=== PATIENT | male | born 1970 | race African-American/Black ===

== ENCOUNTER 2019-09-12 20:22 | Inpatient (IN) | payer MEDICAID ==
[~2019-09-12] VITALS: Ht 175.3 cm; Wt 115.0 kg
[~2019-09-12 20:22] MED LIST: TRAMADOL; TRAZ-175 PO
--- NOTE | 2019-09-12 20:57 | NUR ---
FIRST CONTACT: PT LAYING BACK ON GURLYNETTE, APPEARS COMFORTABLE. STATES "I CAME IN BECAUSE OF MY ABCESS" REPORTS GARGLING PEROXIDE RINSE AND TAKING IBUPROFEN PURCHASING INTERNSHIP. PT HAS NOTABLE RIGHT LOWER CHEEK ABOVE JAW LINE SWELLING. PT STATES "I HAVE AN ABCESS." SWOLLEN AREA SLIGHTLY FIRM, SWELLING PROGRESSES OVER RIGHT SIDE OF LOWER LIP. PT REPORTS 10/10. PT DENIES ANY DIFFICULTY SWALLOWING, REPORTS NUMBNESS ON THE RIGHT SIDE. DENIES TINGLING, SKIN IN AREA WARM ADN DRY ADN COLOR WNL. DENIES ANY SOB. GROSS NEURO INTACT, DENIES VISION CHANGES, PERRLA INTACT. PT PLACED ON BP, SPO2 MONITORING DELL CAMPOS AT BS FOR EVAL AND POC.
[2019-09-12 21:15] LABS: BASOPHILS # (AUTO) 0.03 x10^3/uL (0-0.1); BASOPHILS % (AUTO) 0 % (0-1); EOSINOPHILS # (AUTO) 0.05 x10^3/uL (0-0.4); EOSINOPHILS % (AUTO) 0 % (1-7); LYMPHOCYTES # (AUTO) 2.47 x10^3/uL (1-3.4); LYMPHOCYTES % (AUTO) 18 % (22-44); MD NO; MEAN CORPUSCULAR HEMOGLOBIN 29.5 pg (27.5-34.5); MEAN CORPUSCULAR HGB CONC 32.6 g/dL (33.2-36.2); MEAN CORPUSCULAR VOLUME 90.5 fL (81-97); MEAN PLATELET VOLUME 7.5 fL (7.4-10.4); MONOCYTES # (AUTO) 1.06 x10^3/uL (0.2-0.8); MONOCYTES % (AUTO) 8 % (2-9); NEUTROPHILS # (AUTO) 10.44 x10^3/uL (1.8-6.8); NEUTROPHILS % (AUTO) 74 % (42-75); PLATELET COUNT 313 x10^3/uL (130-400); RED BLOOD COUNT 4.93 x10^6/uL (4.38-5.82); RED CELL DISTRIBUTION WIDTH 14.6 % (9.4-14.8)
[2019-09-12 21:24] LABS: ALBUMIN 3.7 g/dL (3.4-5.0); ANION GAP 7 mmol/L (5-15); CALCIUM 10.1 mg/dL (8.5-10.1); CHLORIDE 108 mmol/L (98-107); CREATININE 0.83 mg/dL (0.7-1.3)
[2019-09-12] MEDS ORDERED: ONDANSETRON 2MG/ML, 2ML IVPush ONE (21:30)
[2019-09-12] MEDS ORDERED: SODIUM CHLORIDE FLUSH 10ML SYR IVF ONE (21:30)
[2019-09-12 21:32] LABS: ALANINE AMINOTRANSFERASE 58 U/L (12-78)
[2019-09-12 21:33] LABS: ALKALINE PHOSPHATASE 138 U/L (45-117); BILIRUBIN,TOTAL 0.8 mg/dL (0.2-1.0); TOTAL PROTEIN 7.7 g/dL (6.4-8.2)
[2019-09-12] MEDS ORDERED: HYDROmorphone 2 MG/ML, 1ML ONE (21:38)
[2019-09-12] MEDS ORDERED: ONDANSETRON 2MG/ML, 2ML ONE (21:38)
[2019-09-12] MEDS: HYDROmorphone 2 MG/ML, 1ML IVPush PRN ×2 (21:43→23:04)
--- NOTE | 2019-09-12 21:48 | NUR ---
PT MEDICATED PER MAY, PT TO CT VIA GURLYNETTE, NO CHANGE IN PT CONDITION AT THIS TIME. PT PLACED ON 2L NC AFTER MEDICATING PT. WCTM.
--- NOTE | 2019-09-12 22:40 | NUR ---
PT RESTING IN GURNEY, REPORTS PAIN IS DECREASED. DENIES ADDITIONAL NEEDS AT THIS TIME. NO OTHER CHANGES IN CONDITION, WCTM. WAITING FOR ADDITIONAL LAB RESULTS.
[2019-09-12] MEDS ORDERED: OMNIPAQUE 350 MG/ML, 100ML BOTTLE ONE (22:42)
--- NOTE | 2019-09-12 22:58 | NUR ---
PT REPORTS INCREASING ORAL PAIN, 10/11. PT MEDICATED PER MAY. NO OTHER CHANGE IN CONDITION, WCTM.
[2019-09-12] MEDS ORDERED: HYDROmorphone 1 MG/ML, 1ML INJ ONE (23:00)
[2019-09-13] MEDS ORDERED: CLINDAMYCIN PMX 300MG/50ML 50 ML IV SCH
[2019-09-13] MEDS ORDERED: HYDROmorphone 2 MG/ML, 1ML IVPush PRN
[2019-09-13] MEDS ORDERED: CLINDAMYCIN PMX 600MG/50ML 50 ML IV ONE
[2019-09-13] MEDS ORDERED: ONDANSETRON 2MG/ML, 2ML IVPush ONE
[2019-09-13] MEDS ORDERED: AMPICILLIN/SULBACTAM 3 GM in SODIUM CHLORIDE 0.9% 100 ML IV ONE
--- NOTE | 2019-09-13 00:02 | NUR ---
PT RESTING IN [facility], MEDICATED PER MAY. NAD, NO CHANGE IN CONDITION. VSS, GIVEN ICE PACK AND ORAL SWABS FOR COMFORT. PT STATES FACE IS "GETTING PRETTY HOT." WCTM. WAITING ON CONSULT.
[2019-09-13] MEDS ORDERED: HYDROmorphone 1 MG/ML, 1ML INJ ONE (00:12)
[2019-09-13] MEDS: SODIUM CHLORIDE 0.9% 1,000 ML IV SCH ×2 (00:13→22:21)
[2019-09-13] MEDS: AMPICILLIN/SULBACTAM 3 GM in SODIUM CHLORIDE 0.9% 100 ML IV SCH ×3 (00:19→16:25)
[2019-09-13] MEDS ORDERED: hydrALAzine 20 MG/ML, 1ML IVPush PRN (00:30)
[2019-09-13] MEDS ORDERED: BISACODYL 10 MG SUPP PR PRN (00:30)
[2019-09-13] MEDS: TRAZODONE 100MG TABLET PO SCH ×2 (00:30→22:21)
[2019-09-13] MEDS ORDERED: POLYETHYLENE GLYCOL 17 GM PACKET PO PRN (00:30)
--- NOTE | 2019-09-13 01:15 | NUR ---
LATE ENTRY: PT RESTING IN [facility], SWAB SAMPLE COLLECTED AND WALKED TO LAB. PT NAD, RESP WNL, NO CHANGE IN CONDITION WCTM. WAITING ON ADMIT BED.
--- NOTE | 2019-09-13 01:45 | NUR ---
PT AMBULATED TO AND FROM RESTROOM WITH A SMOOTH AND STEADY GAIT, PT GIVEN FRESH ICE PACK AND SOCKS FOR COMFORT, DENIES ADDITIONAL NEEDS AT THIS TIME. PT TRANSFERRED TO HOSPITAL BED. NAD, VSS, NO CHANGE IN PT CONDITION, WCTM.
--- NOTE | 2019-09-13 02:15 | NUR ---
REPORT CALLED TO [facility]. PT CARE TO BE TRASNFERRED ONCE TAKEN TO THE FLOOR. PT CONDITION UNCHANGED.
[2019-09-13 02:30] VITALS: BP 114/75
[2019-09-13] MEDS: HYDROmorphone 2 MG/ML, 1ML IVPush PRN ×3 (02:54→06:37)
[2019-09-13 03:21] VITALS: BP 114/75
[2019-09-13] MEDS: ONDANSETRON 2MG/ML, 2ML IVPush PRN (03:38)
[2019-09-13] MEDS: OXYcodone IR 5MG TABLET PO PRN ×2 (04:54→22:49)
[2019-09-13 08:37] VITALS: BP 124/82
[2019-09-13] MEDS: SENNA/DOCUSATE TABLET PO SCH (08:41)
[2019-09-13] MEDS ORDERED: MIDAZOLAM 1 MG/ML, 2ML ONE (08:42)
[2019-09-13] MEDS ORDERED: FENTANYL PF 100 MCG/2ML ONE ×2 (08:42→12:11)
[2019-09-13] MEDS ORDERED: ONDANSETRON 2MG/ML, 2ML ONE (08:45)
[2019-09-13] MEDS ORDERED: PROPOFOL 10 MG/ML, 20ML ONE (08:45)
[2019-09-13] MEDS ORDERED: DEXAMETHASONE 4 MG/ML, 1ML ONE ×2 (08:45)
[2019-09-13] MEDS ORDERED: SUCCINYLCHOLINE 20 MG/ML, 10ML ONE (08:45)
[2019-09-13] MEDS ORDERED: ROCURONIUM 10MG/ML,5ML ONE (08:45)
[2019-09-13] MEDS ORDERED: LIDOCAINE 1%-EPI 1:100K, 20ML ONE (09:15)
[2019-09-13] MEDS ORDERED: MEPERIDINE/PF 25MG/0.5ML IVPush PRN (10:30)
[2019-09-13] MEDS ORDERED: PROMETHAZINE 25 MG/ML, 1ML IVPush PRN (10:30)
[2019-09-13] MEDS ORDERED: ONDANSETRON 2MG/ML, 2ML IVPush PRN (10:30)
[2019-09-13] MEDS ORDERED: ACETAMINOPHEN 325 MG TABLET PO PRN (10:30)
[2019-09-13] MEDS ORDERED: HYDROmorphone 1 MG/ML, 1ML INJ IVPush PRN (10:30)
[2019-09-13] MEDS ORDERED: OXYcodone 5 MG/5 ML ORAL.SOL UDC PO PRN (10:30)
[2019-09-13] MEDS ORDERED: hydrALAzine 20 MG/ML, 1ML IV PRN (10:30)
[2019-09-13] MEDS ORDERED: LABETALOL 5MG/ML, 20ML IV PRN (10:30)
[2019-09-13] MEDS ORDERED: DIAZEPAM 5 MG/ML, 2ML IVPush PRN (10:30)
[2019-09-13] MEDS ORDERED: LIDOCAINE 1%-EPI 1:100K, 20ML INFIL ONE (11:03)
[2019-09-13] MEDS ORDERED: OXYcodone 5 MG/5 ML ORAL.SOL UDC ONE (12:12)
[2019-09-13] MEDS: FENTANYL PF 100 MCG/2ML IV PRN ×2 (12:18→12:23)
[2019-09-13 17:22] LABS: HCT (SEDRATE) 43.6 % (39.2-51.8)
[2019-09-13 18:39] VITALS: BP 120/65
[2019-09-13] MEDS ORDERED: ALUMINUM/MAG/SIMETHICONE 30 ML UDC PO PRN (22:30)
[2019-09-13 23:44] VITALS: BP 128/65
[2019-09-14] MEDS: ONDANSETRON 2MG/ML, 2ML IVPush PRN (00:36)
[2019-09-14] MEDS: AMPICILLIN/SULBACTAM 3 GM in SODIUM CHLORIDE 0.9% 100 ML IV SCH ×3 (00:36→17:10)
[2019-09-14] MEDS: OXYcodone IR 5MG TABLET PO PRN ×4 (00:49→20:47)
[2019-09-14 03:27] VITALS: BP 126/77
[2019-09-14 04:40] LABS: ANION GAP 7 mmol/L (5-15); CALCIUM 9.7 mg/dL (8.5-10.1); CHLORIDE 106 mmol/L (98-107); MEAN CORPUSCULAR HEMOGLOBIN 29.6 pg (27.5-34.5); MEAN CORPUSCULAR HGB CONC 31.9 g/dL (33.2-36.2); MEAN CORPUSCULAR VOLUME 92.7 fL (81-97); MEAN PLATELET VOLUME 7.9 fL (7.4-10.4); PLATELET COUNT 271 x10^3/uL (130-400); RED BLOOD COUNT 4.43 x10^6/uL (4.38-5.82); RED CELL DISTRIBUTION WIDTH 14.5 % (9.4-14.8)
[2019-09-14 04:49] LABS: CREATININE 0.87 mg/dL (0.7-1.3)
[2019-09-14 04:56] LABS: BASOPHILS % (AUTO) 0 % (0-1); EOSINOPHILS % (AUTO) 0 % (1-7); LYMPHOCYTES # (AUTO) 1.72 x10^3/uL (1-3.4); LYMPHOCYTES % (AUTO) 9 % (22-44); MD SCAN; MONOCYTES # (AUTO) 1.37 x10^3/uL (0.2-0.8); MONOCYTES % (AUTO) 7 % (2-9); NEUTROPHILS # (AUTO) 15.61 x10^3/uL (1.8-6.8); NEUTROPHILS % (AUTO) 84 % (42-75)
[2019-09-14] MEDS: ACETAMINOPHEN 325 MG TABLET PO PRN ×2 (06:28→20:47)
[2019-09-14 07:07] VITALS: BP 112/75
[2019-09-14] MEDS: SENNA/DOCUSATE TABLET PO SCH (08:33)
[2019-09-14] MEDS: LAMIVUDINE HOMEMEDPO SCH ×2 (13:29→21:35)
[2019-09-14] MEDS: TENOFOVIR DISOPROXIL HOMEMEDPO SCH ×2 (13:29→21:35)
[2019-09-14] MEDS: [UNRECOGNIZED DRUG - OTHER] HOMEMEDPO SCH ×2 (13:29→21:35)
[2019-09-14 13:55] VITALS: BP 120/67
[2019-09-14 19:26] VITALS: BP 120/81
[2019-09-14] MEDS: TRAZODONE 100MG TABLET PO SCH (21:36)
[2019-09-15] MEDS: AMPICILLIN/SULBACTAM 3 GM in SODIUM CHLORIDE 0.9% 100 ML IV SCH ×2 (01:25→09:07)
[2019-09-15 01:29] VITALS: BP 102/67
[2019-09-15] MEDS: SODIUM CHLORIDE 0.9% 1,000 ML IV SCH (02:51)
[2019-09-15] MEDS: OXYcodone IR 5MG TABLET PO PRN ×2 (03:47→09:12)
[2019-09-15] MEDS: ACETAMINOPHEN 325 MG TABLET PO PRN (03:47)
[2019-09-15 06:23] LABS: BASOPHILS # (AUTO) 0.03 x10^3/uL (0-0.1); BASOPHILS % (AUTO) 0 % (0-1); EOSINOPHILS # (AUTO) 0.05 x10^3/uL (0-0.4); EOSINOPHILS % (AUTO) 0 % (1-7); LYMPHOCYTES # (AUTO) 2.91 x10^3/uL (1-3.4); LYMPHOCYTES % (AUTO) 24 % (22-44); MD NO; MEAN CORPUSCULAR HEMOGLOBIN 29.5 pg (27.5-34.5); MEAN CORPUSCULAR HGB CONC 31.5 g/dL (33.2-36.2); MEAN CORPUSCULAR VOLUME 93.8 fL (81-97); MEAN PLATELET VOLUME 7.8 fL (7.4-10.4); MONOCYTES % (AUTO) 8 % (2-9); NEUTROPHILS # (AUTO) 7.96 x10^3/uL (1.8-6.8); NEUTROPHILS % (AUTO) 67 % (42-75); PLATELET COUNT 279 x10^3/uL (130-400); RED BLOOD COUNT 4.23 x10^6/uL (4.38-5.82); RED CELL DISTRIBUTION WIDTH 14.4 % (9.4-14.8)
[2019-09-15 06:28] LABS: ANION GAP 3 mmol/L (5-15); CALCIUM 10.2 mg/dL (8.5-10.1); CHLORIDE 110 mmol/L (98-107); CREATININE 0.83 mg/dL (0.7-1.3)
[2019-09-15 07:49] VITALS: BP 120/79
[2019-09-15] MEDS: SENNA/DOCUSATE TABLET PO SCH (09:07)
[2019-09-15] MEDS ORDERED: ACET325T26 PO (12:18)
[2019-09-15] MEDS ORDERED: AMOX1TAB64 PO (12:18)
== END 2019-09-15 12:50 | disposition home or self-care (01) | DRG 138 ==
LOC: ED 09-13 01:12 → EDIP 09-13 01:13 → 4NE 09-13 02:48 → OBSVTOIN 09-14 13:56
PROVIDERS: ADMIT Internal Medicine; ATTEND Hospitalist
PROC: 0CDWXZ1 Extraction of Upper Tooth, Multiple, External Approach (ICD-10-PCS; 2019-09-13)
PROC: 0J910ZZ Drainage of Face Subcutaneous Tissue and Fascia, Open Approach (ICD-10-PCS; principal; 2019-09-13 13:00)
DX: K12.2 Cellulitis and abscess of mouth (principal); I10 Essential (primary) hypertension; Z20.828 Contact with and (suspected) exposure to other viral communicable diseases; Z21 Asymptomatic human immunodeficiency virus [HIV] infection status; G47.00 Insomnia, unspecified; E66.9 Obesity, unspecified; Z68.35 Body mass index [BMI] 35.0-35.9, adult; D72.829 Elevated white blood cell count, unspecified
CPT/HCPCS: 36415; 70100; 70487; 80048; 80053; 83605; 84145; 85025; 85651; 86140; 87040; 87635; 96365; 96375; 99285; G0378; J0295; J1100; J1170; J2250; J2405; J2704; J3010; J3490; Q9967; J0330; J7030